=== PATIENT | female | born 1955 | race African-American/Black ===

== ENCOUNTER → 2019-03-15 | Outpatient (CLI) | payer OTHER ==
--- NOTE | 2019-03-15 16:53 | RAD ---
Right lower extremity venous doppler ultrasound History: History of DVT in the right calf in November 2018, on blood thinners, pain and edema Comparison: None Findings: Multiple grayscale, color, and duplex spectral analysis sonographic images were acquired of the right lower extremity veins to evaluate for the presence of DVT. There is normal phasicity. Normal compression, color-flow, and augmentation is demonstrated from the right common femoral to the popliteal veins. There is normal color flow of the proximal greater saphenous and profunda femoris veins. There is normal color flow of segments of the calf veins. Impression: 1. There is no evidence of deep venous thrombosis from the right common femoral to the popliteal veins. Electronically signed by: Oliver Dumas MD (03/15/2019 4:50 PM) [id number]
== END | disposition home or self-care (01) ==
LOC: US 16:12
PROVIDERS: ATTEND Physician Assistant
DX: M79.604 Pain in right leg (principal); R60.0 Localized edema
CPT/HCPCS: 93971